=== PATIENT | female | born 1955 | race Caucasian/White ===

== ENCOUNTER 2020-06-13 06:30 | Outpatient (CLI) | payer MEDICARE, SELFPAY ==
--- NOTE | 2020-06-13 07:04 | MR_ITS ---
WS: [id number] MRI LEFT KNEE NONCONTRAST TECHNIQUE: Axial PD, coronal PD fat sat, coronal PD, sagittal PD, and sagittal PD fat-sat images obta ined. CLINICAL INFORMATION: KNEE PAIN, ACUTE COMPARISON: None. FINDINGS: Distal quadriceps and patella tendons are intact. Hypertrophic patella. Infrapatellar soft tissue fouzia ma. High-grade tear of the ACL with no normal fibers visualized. PCL appears intact with Mucoid degen eration. Chronic thinning of the medial and lateral meniscus. Chronic intrasubstance signal abnormality involv ing both the medial and lateral meniscus. No acute appearing meniscal tears. Moderate to advanced chris nt space narrowing involving the medial and lateral joint compartments and patellofemoral articulatio n. Advanced chondromalacia medial joint compartment with edema in the tibial plateau and femoral cond yle. Hypertrophic changes along the joint line. Advanced chondromalacia patella. Hypertrophic patella. Small popliteal cyst measuring 1.9 x 0.7 cm. M edial and lateral collateral ligaments are intact. MR/MR knee LT wo con* [id number] IMPRESSION: 1. High-grade tear of the ACL with no normal fibers visualized. 2. Increased T1 and T2 signal abnormality involving the PCL consistent with mu coid degeneration. 3. Chronic blunting of the medial and lateral meniscus. No acute appearing men iscal tears. 4. Advanced joint space narrowing involving the medial joint compartment with advanced chondromalacia and subchondral edema. 5. Advanced narrowing at the patellofemoral articulation with chondromalacia. 6. Small popliteal cyst as described above. 7. Medial and lateral collateral ligaments appear intact.
== END 2020-06-13 06:31 | disposition home or self-care (01) ==
LOC: RADSHAW 06:36
PROVIDERS: Family Provider Family Medicine; PCP Family Medicine; Visit Provider Family Medicine
DX: S83.511A Sprain of anterior cruciate ligament of right knee, initial encounter; X58.XXXA Exposure to other specified factors, initial encounter; M71.22 Synovial cyst of popliteal space [Baker], left knee; M22.42 Chondromalacia patellae, left knee; R60.0 Localized edema
CPT/HCPCS: 73721

== ENCOUNTER → 2020-06-27 15:57 | Outpatient (BNVA) | payer MEDICARE, SELFPAY | PROVIDERS: Family Provider Family Medicine; PCP Family Medicine; Referring Provider Family Medicine; Visit Provider Orthopaedic Surgery | DX: M25.562 Pain in left knee (principal) | CPT/HCPCS: 73560; 73565 ==

== ENCOUNTER 2020-12-08 13:36 | Outpatient (CLI) | payer MEDICARE, SELFPAY ==
--- NOTE | 2020-12-08 13:40 | MM_ITS ---
WS: [id number] BILATERAL SCREENING DIGITAL MAMMOGRAM WITH CAD HISTORY: SCREENING COMPARISON: 07/16/2013 Bilateral CC and MLO views submitted. Computer aided detection analyzed. Breast composition: The breasts are almost entirely fatty. No suspicious masses, microcalcifications or architectural distortion. Benign calcifications LEFT breast. MM/[place] [id number] IMPRESSION: BI-RADS: 2-Benign FOLLOW UP: 1 Year Follow-up
== END 2020-12-08 13:37 | disposition home or self-care (01) ==
LOC: RADSHAW 13:39
PROVIDERS: PCP Family Medicine; Visit Provider Family Medicine
DX: Z12.31 Encounter for screening mammogram for malignant neoplasm of breast (principal)
CPT/HCPCS: 77067

== ENCOUNTER → 2021-01-08 10:34 | Outpatient (BNVA) | payer MEDICARE, SELFPAY | PROVIDERS: PCP Family Medicine; Visit Provider Specialist | DX: M17.12 Unilateral primary osteoarthritis, left knee (principal); M25.561 Pain in right knee; M25.562 Pain in left knee; Z96.651 Presence of right artificial knee joint | CPT/HCPCS: 73560; 73565 ==

== ENCOUNTER → 2021-01-11 16:33 | Outpatient (BNVA) | payer MEDICARE, SELFPAY | PROVIDERS: PCP Family Medicine; Visit Provider Specialist | DX: Z01.812 Encounter for preprocedural laboratory examination (principal); Z20.822 Contact with and (suspected) exposure to COVID-19 | CPT/HCPCS: 87635 ==

== ENCOUNTER 2021-01-16 15:35 | Observation (INO) | payer MEDICARE, SELFPAY ==
[2021-01-09 13:08] VITALS: BMI 39.4
--- NOTE | 2021-01-09 14:03 | ANES.PREANE2 ---
Pre-Anesthetic Assessment Pre-Anesthetic Assessment: Height/Weight: Height 1.68 m Weight 110.677 kg Proposed Procedure: Operation Date: 01/16/21 14:25 Proposed Procedures p left Total Knee Arthroplasty 87845 m17.10(Left) - Cary Braga MD Was Beta Amilcar taken within 24 hours: N/A Was Clonidine taken within 24 hours: N/A Social: Social History: No alcohol and No tobacco Exam: Pre-Anes Outpt Exam: alert, oriented x 3, clear to auscultation bilaterally and regular rate & rhythm Airway: Submandibular: WNL Cervical ROM: WNL MP: 2 Dentition: Full CV/HEM: CV/HEM: HTN Metabolic: Metabolic: Morbid obesity and Thyroid Musc/skel: Musc/skel: OA/DJD Anesthetic Plan: ASA status: 3 Anesthesia: Regional (specify below) (SAB with adductor blk) Risk of > 500 ml blood loss (7ml/kg in children): No PFSH Anesthesia PFSH: Surgical History History of right knee joint replacement Social History Smoking and tobacco status: never smoked Data Anesthesia CBC & Chem 7: 01/09/21 13:25 01/09/21 13:25 Cardiac Studies: No Data to Display
[2021-01-09 14:06] LABS: Basophils % 0.7 %; Eosinophils # 0.4 10^3/uL (0.0-0.8); Eosinophils % 5.8 %; Hematocrit 38.5 % (37.0-47.0); Hemoglobin 12.6 g/dL (11.5-15.3); Lymphocytes # 2.1 10^3/uL (0.8-4.8); Lymphocytes % 34.2 %; Mean Corpuscular HGB Conc 32.7 g/dL (30.0-36.0); Mean Corpuscular Hemoglobin 30.3 pg (28.0-34.0); Mean Corpuscular Volume 92.5 fL (81-99); Mean Platelet Volume 11.4 fL (7.4-10.4); Monocytes # 0.6 10^3/uL (0.2-0.9); Monocytes % 9.1 %; Neutrophils # 3.03 10^3/uL (1.8-7.7); Nucleated Red Blood Cells % 0 %; Platelet Count 218 10^3/cmm (130-400); Red Blood Count 4.16 10^6/uL (4.1-5.3); Red Cell Distribution Width 12.3 % (12.1-15.1); White Blood Count 6.1 10^3/uL (4.0-10.0)
[2021-01-09 14:10] LABS: Alanine Aminotransferase 15 U/L (0-33); Albumin Level 4.3 g/dL (3.5-5.2); Alkaline Phosphatase 65 IU/L (35-105); Anion Gap 16.3 (5-19); Aspartate Amino Transferase 17 U/L (0-32); Blood Urea Nitrogen 29 mg/dL (8-23); Calcium 8.9 mg/dL (8.5-10.5); Carbon Dioxide 25 mmol/L (22-29); Chloride 101 mmol/L (98-107); Globulin 2.6 g/dL (1.3-4.6); Glomerular Filtration Rate 49.7 mL/min (90-130); Glucose 91 mg/dL (65-115); Osmolality Calculated 291 mOsm/kg (285-295); Potassium 4.3 mmol/L (3.5-5.1); Sodium 138 mmol/L (136-145); Total Bilirubin 0.4 mg/dL (0.15-1.2); Total Protein 6.9 g/dL (6.6-8.7)
[2021-01-09 14:14] LABS: Creatinine Clr Calc Pharmacy 63.4169
[2021-01-09 14:17] LABS: Add Urine Microscopic? YES; Bilirubin Urine 1+ (Negative); Blood Urine Trace (Negative); Glucose Urine UA Norm (Normal); Ketones Urine Negative (Negative); Leukocyte Esterase Urine Negative (Negative); Nitrate Urine Negative (Negative); Protein Urine Neg (Negative); Specific Gravity, Urine 1.015 (1.005-1.030); Urine Appearance Hazy (CLEAR); Urine Color Yellow (Yellow); Urobilinogen Urine 1 mg/dL (Negative); pH Urine 5 (5-7)
[2021-01-09 14:18] LABS: Add Urine Culture? No; Bacteria Urine 2+ /hpf; RBC Urine 0-4 /hpf (0-2); WBC Urine 0-4 /hpf (0-5)
[2021-01-16] VITALS (16 sets, daily range): BP systolic 107–168; BP diastolic 59–92; PULSE 64–85; RESP 12–20; TEMP 36.4–36.8; O2SAT 94–98
[2021-01-16] MEDS: CELEcoxib 200 mg Capsule 400 MG PO (10:27)
[2021-01-16] MEDS: sodium chloride 0.9% 1,000 ML 30 ML IV (10:27)
--- NOTE | 2021-01-16 10:35 | P.ANESUD_ITS ---
Pre-Anesthetic Update Pre-Anesthetic Assessment: Date of Surgery/Procedure: 01/16/21 Preop Minnie gnosis: Severe degenerative osteoarthritis left knee Proposed Procedure: Operation Date: 01/16/21 14:05 Proposed Procedures p left Total Knee Arthroplasty 19617 m17.10(Left) - Cary Braga MD Any changes to Pre-Anesthetic Assessment?: No Last Intake: Intake Last Liquid Date 01/15/21 Last Liquid Time 21:00 Last Solid Date 01/15/21 Last Solid Time 21:00 Vitals: Temperature 98 F 01/16/21 10:12 Temperature Source Temporal Artery S can 01/16/21 10:12 Pulse Rate 83 01/16/21 10:12 Respiratory Rate 18 01/16/21 10:12 Blood Pressure 168/92 01/16/21 10:12 Blood Pressure Hedy n 117 01/16/21 10:12 Pulse Oximetry 97 01/16/21 10:12 Oxygen Delivery Me thod 01/16/21 10:12 Exam: Pre-Anes Outpt Exam: alert, oriented x 3, clear to auscultation bilaterally and regular rate & rhythm Cardiac Studies: No Data to Display
[2021-01-16] MEDS: midazolam 1 mg/mL INJ 2 mL 2 MG IVP (10:37)
[2021-01-16] MEDS: vancomycin 1,000 MG in sodium chloride 0.9% 250 ML 250 MG IV (10:53)
--- NOTE | 2021-01-16 10:56 | ANES.PROC ---
Anesthesia Procedures Procedure/Date: 01/16/21 Nerve Block ^: Nerve Block 1: Main Anesthesia: general anesthesia Time Out Performed: Yes Consent: requested by attending/covering physician, from patient, risks and benefits reviewed and patient agrees to proceed Nerve block location: adductor canal (L) Anesthesia monitors applied: pulse oximetry, EKG, BP cuff and oxygen Nerve block position: supine Anesthetic Used: ropivicaine 0.5% and with decadron (4 mg) Amount of anesthesia used (mL): 30 Ultrasound used to: visualize and ID femerol nerve Nerve Stimulator Used?: No Interscalene/Femoral BLK: 4 stimuplex 21 g needle used for position and inplane approach, visualize local anesthetic spread and no vascular puncture identified Injection: neg aspiration of heme and paresthesia +/- Patient Tolerated Procedure: well and no complications Complications: none and bleeding Additional Comments: aspiration of arterial blood - needle withdrawn, blood ejected, 2nd attempt with successful spread and negative aspiration
--- NOTE | 2021-01-16 11:00 | P.HPUD_ITS ---
Surgery/Procedure H&P Update DATE OF PROCEDURE: January 16, 2021 DATE H&P PERFORMED: 01/08/21 H&P UPDATE INFORMATION: I have reviewed H&P completed within last 30 days, I have examined patient prior to procedure, No changes to prior documentation and H&P is in [facility] EMR on date indicated PREOP DIAGNOSIS: Severe degenerative osteoarthritis left knee PLANNED PROCEDURE: Operation Date: 01/16/21 14:05 Proposed Procedures p left Total Knee Arthroplasty 91124 m17.10(Left) - Cary Braga MD Related Problem List Diagnoses (1) Primary osteoarthritis of left knee: (2) Obesity, Class II, BMI 35-39.9:
[2021-01-16] MEDS: ceFAZolin 1,000 mg SDV 1000 MG IRRIGATION ×2 (12:44→12:45)
[2021-01-16] MEDS: vancomycin 1,000 MG SDV 1000 MG XX (12:46)
[2021-01-16] MEDS: tranexamic acid 1,000 mg/10mL SDV 1000 MG IRRIGATION (12:50)
--- NOTE | 2021-01-16 14:52 | P.OP_ITS ---
Operative Report Date of procedure: January 16, 2021 Pre-op Diagnosis: Severe degenerative osteoarthritis left knee Post-op diagnosis: same Post-op Findings: Severe degenerative osteoarthritis with large osteophytes Procedure Done: Left total knee arthroplasty Implants: The Erica total knee system with a size 4 triathlon beaded posterior stabilized femur left, a triathlon titanium tibial component size 4 beaded, a triathlon X3 posterior stabilized tibial bearing insert size 4 x 9 mm and a beaded triathlon titanium asymmetric patella size 32 x 10 mm Specimens removed/disposition: Bone, disposed of Pathology: none sent Surgeon: Cary Braga Dry Cleaning Attendant: [facility] operating room technicians Anesthesia: MAC (With spinal anesthesia and adductor block, ASA 3) Estimated blood loss (mL): 50 Tourniquet time (min): 120 Tourniquet time: At 250 mmHg IV fluids (mL): 800 Urine output (mL): 150 Complications: None Findings: Severe degenerative osteoarthritis with large osteophytes Condition: stable Disposition: PACU (Then discharged to floor for postoperative management and observation) Brief History: This 65-year-old woman presented with complaints of some right total knee arthroplasty elsewhere with subsequent revision by me. She is doing well with this, but the left knee is impacting her tremendously. She is unable to ambulate or comfortably live her life. After discussion, the patient wished to proceed with operative intervention in the form of a left total knee arthroplasty. Risks and complications were discussed with her. In particular, her BMI of 39.4 was discussed with her. She has decreased this from over 40, and she understands the issues regarding elevated BMI and arthroplasty. Procedure: The patient was brought to the operating theater, and after undergoing adequate spinal anesthesia with supplemental regional block and MAC anesthesia, ASA 3, the left lower extremity was prepped with Dura-Prep and draped in usual fashion following placement of a tourniquet high on the leg. The leg was then draped free. Following prepping and draping, the leg was exsanguinated, and the tourniquet was elevated to 250 mmHg for a total tourniquet time of 120 minutes. Prior to elevation of the tourniquet, but following exposure of the site of surgery, a surgical pause was performed. At the time of the surgical pause, we confirmed the site and side of surgery. Additionally, we confirmed the appropriate and timely administration of preoperative antibiotics, vancomycin 1 g, as well as transexemic acid 1 g. The availability of equipment was confirmed, and the patient's identity was verbalized as well. Following the surgical pause, an incision was made centering over the patella continuing proximally and distally as necessary to allow access to the knee noris int. Dissection continued through skin and soft tissues using a scalpel. Hemostasis was obtained using electrocautery. The skin incision was followed by a median parapatellar arthrotomy. The leg was extended and the patella was everted. Following this, the leg was returned to flexed position. The distal femur was exposed and a drill hole was made in this for placement of the distal femoral jig. The distal femoral jig was set at 5? of valgus. The distal femoral cutting block was then placed in appropriate position, and an crystal wing was used to confirm an appropriate amount of distal femur would be resected. The distal femoral resection was accomplished with 8 mm of bone being resected distally. After the distal femoral resection had been accomplished, the femur was measured and it measured a size 4. Medial lateral dimension also measured a size 4. A size 4 femoral cutting block was placed in position, and we were then able to accomplish the anterior, posterior and chamfer cuts. This jig was then removed and the notch guide was placed in position. With the notch guide in appropriate position, the notch was excised including resection of the anterior and posterior cruciate ligaments. This notch was to allow for the posterior stabilized femoral component. At this point, the femur was prepared and attention was directed to the proximal tibia. The posterior knee retractor was placed along with medial and lateral retractors. Further resection of the menisci was accomplished as we had better visualization. A complete meniscectomy was performed both medially and laterally with care being taken to protect the popliteus. Retractors were then placed so that the proximal tibia was well visualized. A drill hole was then made in the tibia for placement of the intramedullary guide. This guide was placed so that approximately 2 mm of bone would be resected from the deficient medial tibial plateau. The intramedullary guide was utilized supplemented with an extramedullary guide to assure appropriate alignment for the proximal tibial resection. The proximal tibial jig was then evaluated, pinned in position, and the proximal tibial resection was accomplished without difficulty. Circumferential osteophytes were removed from the tibia. The jig was removed, and the proximal tibia was measured. It measured a size 4. We then attempted a trial reduction with a size 4 by 9 mm insert. The femoral component was placed in position for the trial reduction, and the knee was placed through range of motion. There was excellent stability with excellent varus-valgus alignment with appropriate patellar tracking. Extension was noted to be full as well. This was felt to be the appropriate size insert. There was full extension and flexion without lift off and the rotation of the tibia was marked. Alignment was checked from the hip to the ankle, and this was noted to be appropriate as well. Attention was then directed to the patella. The patella was measured with a caliper. We resected sufficient patella to leave approximately 14 mm of patella remaining. Measurements of the patella then indicated that a size asymmetric 32 mm x 10 mm was the appropriate patellar size. We then placed the jig to drill for the 3 pegs of the press-fit patella, and these drill holes were made without incident. A trial patella was then placed, and the knee was placed through range of motion. The patella was noted to track nicely without evidence of subluxation. The femur was prepared for a press-fit femur by drilling 2 holes for the femoral pegs. All trial components were subsequently removed. The tibial tray was then pinned into position, and we broached the tibia for the stem of the tibial component. Subsequently, 4 drill holes were made for placement of the press-fit tibia. This was accomplished without difficulty. Care was taken to assure appropriate rotation of the tibia as well as appropriate position on the proximal tibia. The tibial tray was completely seated on the proximal tibia. Following broaching, the tibial guide was removed, and all surfaces were copiously irrigated. The surfaces were then dried and a bone plug was placed into the distal femur. Exparel was also injected at this point. The Tritanium tibia was impacted into position. The beaded femur was then impacted into position in a cementless fashion. The tibial insert was placed. The patella was pressed into position with a patellar clamp. The knee was irrigated with 20 mL of Betadine and 500 mL of normal saline, and this was allowed to remain in the knee for 3-4 minutes. The knee was then copiously irrigated and suctioned dry. Attention was then directed to closure. Closure was accomplished with 0 Vicryl in the fascial tissues, 2-0 Monocryl as well as 2 times 0 Vicryl were used in the subcutaneous tissues, and the skin was closed with skin benito and Dermabond with Prineo. A sterile dressing was then placed consisting of Opsite, 4 x 4's, ABDs, sterile soft roll, and an James wrap. The patient was returned the Recovery Room in a satisfactory condition. X-rays were obtained there. The patient will be discharged to the floor for postoperative rehabilitation and pain management. She'll be under observation status with plans to discharge home with home health. Associated Problem List Diagnoses (1) Primary osteoarthritis of left knee: (2) Obesity, Class II, BMI 35-39.9:
--- NOTE | 2021-01-16 14:59 | XR_ITS ---
WS: [id number] LEFT KNEE 2 VIEWS AP and cross table lateral imaging is submitted. HISTORY: Status post total knee arthroplasty. COMPARISON: 01/08/2021 Total knee replacement prosthetic devices are in good position and alignment. Normal position of the patella. Posterior patella prosthesis. Numerous postsurgical sutures are noted over the anterior knee and there are normal postoperative changes in the soft tissues consistent with air, blood and edema. No complications are evident. XR/XR knee LT 1-2V [id number] IMPRESSION: Satisfactory appearance of the recent LEFT knee arthroplasty.
--- NOTE | 2021-01-16 14:59 | SUR.PHASEI ---
1457 PATIENT TO PACU FROM OR. RR EVEN AND UNLABORED. PAYNE CATH IN PLACE. DRESSING TO LEFT KNEE, CDI WITH CHAVA WRAP IN PLACE.
--- NOTE | 2021-01-16 15:36 | SUR.PHASEI ---
1523 PATIENT TO MED SURG. DENIES PAIN. DRESSING TO LEFT KNEE, CDI WITH FIRST ICE IN PLACE. PAYNE CATH DRAINING CLEAR, YELLOW URINE.
--- NOTE | 2021-01-16 16:13 | PC.NURSE ---
called PACU and talked to GISEL Bhatti requesting orders to be transferred. play writer has PACU and OR meds
[2021-01-16] MEDS: calcium carbonate 500 mg Chew Tablet 1000 MG PO (17:12)
[2021-01-16] MEDS: sennosides-docusate Tablet 2 TAB PO (17:13)
[2021-01-16] MEDS: iron polysaccharide complex 150 mg Capsule PO (17:14)
[2021-01-16] MEDS: chlorhexidine gluconate 0.12% Btl 473 mL 30 ML MUCOUS MEM ×2 (17:14→21:56)
[2021-01-16] MEDS: mupirocin oint 22 gm 1 APPLIC NASAL (17:14)
--- NOTE | 2021-01-16 18:59 | ANE.PACU2 ---
Inpatient post-anesthesia follow up: Airway intact: Yes Vital signs: Temperature 97.7 F Pulse Rate 64 Respiratory Rate 17 Blood Pressure 115/75 Pulse Oximetry 98 Oxygen Delivery Me thod Room Air Oxygen Flow Rate Fraction of Inspir ed Oxygen Hydration adequate: Yes Nausea and vomiting: No Pain level: 2 Mental status: Baseline
[2021-01-16] MEDS: CELEcoxib 200 mg Capsule PO (21:56)
[2021-01-16] MEDS: cyclobenzaprine 10 mg Tablet PO (21:57)
[2021-01-16] MEDS: oxyCODONE 5 mg IR Tab/Cap PO (21:57)
[2021-01-17] VITALS (8 sets, daily range): BP systolic 97–110; BP diastolic 61–72; PULSE 71–92; RESP 16–18; TEMP 36.4–36.8; O2SAT 94–98
[2021-01-17 02:55] LABS: Basophils % 0.1 %; Hematocrit 34.7 % (37.0-47.0); Hemoglobin 11.6 g/dL (11.5-15.3); Lymphocytes # 1.2 10^3/uL (0.8-4.8); Lymphocytes % 11.4 %; Mean Corpuscular HGB Conc 33.4 g/dL (30.0-36.0); Mean Corpuscular Hemoglobin 30.4 pg (28.0-34.0); Mean Corpuscular Volume 91.1 fL (81-99); Monocytes # 0.8 10^3/uL (0.2-0.9); Monocytes % 7.3 %; Neutrophils # 8.74 10^3/uL (1.8-7.7); Neutrophils % 80.9 %; Nucleated Red Blood Cells % 0 %; Platelet Count 194 10^3/cmm (130-400); Red Blood Count 3.81 10^6/uL (4.1-5.3); Red Cell Distribution Width 11.7 % (12.1-15.1); White Blood Count 10.8 10^3/uL (4.0-10.0)
[2021-01-17 03:15] LABS: Anion Gap 14.4 (5-19); Blood Urea Nitrogen 25 mg/dL (8-23); Calcium 8.6 mg/dL (8.5-10.5); Carbon Dioxide 24 mmol/L (22-29); Chloride 102 mmol/L (98-107); Glomerular Filtration Rate 62.6 mL/min (90-130); Glucose 136 mg/dL (65-115); Osmolality Calculated 288 mOsm/kg (285-295); Potassium 4.4 mmol/L (3.5-5.1); Sodium 136 mmol/L (136-145)
[2021-01-17] MEDS: oxyCODONE 5 mg IR Tab/Cap PO (06:18)
[2021-01-17] MEDS: calcium carbonate 500 mg Chew Tablet 1000 MG PO (08:24)
[2021-01-17] MEDS: multivitamin therapeutic Tablet 1 TAB PO (08:25)
[2021-01-17] MEDS: levothyroxine 100 mcg Tablet PO (08:25)
[2021-01-17] MEDS: escitalopram 10 mg Tablet 20 MG PO (08:25)
[2021-01-17] MEDS: aspirin 325 mg EC Tablet PO (08:25)
[2021-01-17] MEDS: cyclobenzaprine 10 mg Tablet PO (08:25)
[2021-01-17] MEDS: CELEcoxib 200 mg Capsule PO (08:25)
[2021-01-17] MEDS: iron polysaccharide complex 150 mg Capsule PO (08:25)
[2021-01-17] MEDS: sennosides-docusate Tablet 2 TAB PO (08:25)
[2021-01-17] MEDS: lisinopril 20 mg Tablet PO (08:26)
[2021-01-17] MEDS: chlorhexidine gluconate 0.12% Btl 473 mL 30 ML MUCOUS MEM ×2 (08:26→12:07)
[2021-01-17] MEDS: cholecalciferol (vitamin D3) 1,000 unit Tablet 1000 UNIT PO (08:28)
--- NOTE | 2021-01-17 10:22 | PC.CHAP ---
Pastoral Care Encounter/Spiritual Assessment Type of Contact [] Declined burglar alarm operator visit [] Patient/Family/Request visit [] Outpatient visit [] Follow-up visit [] Physician referral [] Code/Alert [x] Routine visit [] Staff referral [] Actively dying [] Patient sleeping [] Family support [] [] Out of room [] Palliative care [] [] Receiving care in room [] Pre-surgical visit [] Trauma [] Long length of stay [] ICU visit [] Other: Relational/Emotional Strength [x] Patient feels connected with others/family/visitors/staff [] Distress [] Loneliness/isolation [] Abandonment Spirituality of Patient [x] Person of Lizabeth [] Attends Buddhism of their Lizabeth [x] Believes in Prayer [] Reads Bible or Nondenominational materials [] There are Spiritual issues to be addressed Senior Mechanical Project Manager Interventions [x] Prayer [x] Active listening x[] Non-anxious presence [] Spiritual/emotional support [] Crisis/trauma care [] Spiritual counseling [] Bereavement support [] Provided bereavement packet [] Provided Bible/devotional materials [] Provided toy/stuffed animal, coloring book to patient or family member [] Provided Communion [] Anointing/[place] [] Salvation [x] Completed spiritual assessment [] Other: Impact on Illness or Injury [] Angry [] Fearful [] Anxious [] Often cries [] Exhaustion [] Unable to work [] Unable to attend hoahaoism [] Unable to walk/stand [] Unable to read [] Unable to drive [] Unable to eat/drink [] Unable to sleep [] Unable to be with family [] Patient intubated [] Other: Summary patient doing good n very happy Time spent with patient 15 min
[2021-01-17] MEDS: vancomycin 1,000 MG in sodium chloride 0.9% 250 ML 250 MG IV (10:37)
--- NOTE | 2021-01-17 14:04 | PM.DCS ---
Discharge Providers Date of Admission: 01/16/21 15:35 Date of Discharge: January 17, 2021 Attending Provider at Admission: Cary Braga MD Attending Provider at Discharge: Cary Braga MD Primary Care Provider: Aaron Dooley MD Diagnoses at Discharge Discharge Diagnosis (1) Primary osteoarthritis of left knee: Status: Acute (2) Obesity, Class II, BMI 35-39.9: Status: Acute (3) Status post total left knee replacement not using cement: Status: Acute Permanent problem details: [employer] total knee system with a size 4 triathlon beaded posterior stabilized femur left, a triathlon titanium tibial component size 4 beaded, a triathlon X3 posterior stabilized tibial bearing insert size 4 x 9 mm and a beaded triathlon titanium asymmetric patella size 32 x 10 mm Reason for Visit Reason for Visit: total knee arthroplasty Hospital Course Hospital Course Patient presented to the hospital yesterday for same-day surgery. She underwent left total knee arthroplasty which was the primary. Prior to undergoing this left total knee arthroplasty, she was able to decrease her BMI to be under 40. She understood the risks and complications of the surgical procedure. The surgery was uneventful and the patient tolerated it well. She was seen on her first postoperative day. Her dressing was removed. Her wound was benign. There was no evidence of DVT or infection. There was no drainage. She was neurologically intact distally. She was comfortable and wished to be discharged home. Plans were made for her to be discharged home with home health. She was in agreement with the plan. Physical Exam Const: COMMON NORMALS: no acute distress, patient oriented x3 and alert GENERAL APPEARANCE: cooperative and comfortable ORIENTATION/CONSCIOUSNESS: Yes awake HENMT: COMMON NORMALS: normocephalic and atraumatic HEAD & SCALP: normocephalic and atraumatic Eye: GENERAL EYE: appearance normal, both eyes and all related structures Chest: COMMONS NORMALS: normal inspection of the chest Resp: COMMON NORMALS: normal respiratory effort EFFORT & INSPECTION: Yes able to speak in complete sentences and Yes symmetric chest movement Extremity: LEFT LOWER EXTREMITY: Yes knee joint (Dressing was removed, wound is benign.) Left knee: Yes inspection (No drainage or erythema.), Yes palpation (Minimal discomfort to palpation.), Yes ROM (Not evaluated.), Yes neurovascular exam (Intact distally.) and Yes other (Able to straight leg raise and hold the knee in an extended position.) Neuro: COMMON NORMALS: patient oriented x3 SENSORIUM/ORIENTATION: Yes alert Psych: COMMON NORMALS: mental status grossly normal APPEARANCE: Yes grossly normal ATTITUDE: Yes calm and Yes engaged ATTENTION/CONCENTRATION: Yes attention grossly intact Skin: COMMON NORMALS: no rashes or lesions noted GENERAL SKIN EXAM: no rashes or lesions noted Urinary Catheter Management^: Wilkins: Cath Placed During This Visit: yes, but has since been removed by the nurse Reason for Continuing Indwelling Catheter: Decision to DC Catheter Urinary Catheter Date of Insertion: 01/16/21 Urinary Catheter Time of Insertion: 12:00 Date Urinary Catheter Removed: 01/17/21 Time Urinary Catheter Discontinued: 06:12 Discharge Data Data Completed and Pending: Completed Studies During Hospitalization Category Date Time Status XR knee LT 1-2V 7 3560 Routine Exams 01/16/21 14:59 Completed Pending at discharge Category Date Time Status Complete Blood Co unt w/Auto AM LABS Lab 01/18/21 04:00 Ordered Complete Blood Co unt w/Auto AM LABS Lab 01/19/21 04:00 Ordered Labs from last 24 hours 01/17/21 01/17/21 02:34 02:34 WBC 10.8 H RBC 3.81 L Hgb 11.6 Hct 34.7 L MCV 91.1 MCH 30.4 MCHC 33.4 RDW 11.7 L Plt Count 194 MPV 11.0 H Neut % (Auto) 80.9 Lymph % (Auto) 11.4 Osborne % (Auto) 7.3 Eos % (Auto) 0.0 Baso % (Auto) 0.1 Neut # (Auto) 8.74 H Lymph # (Auto) 1.2 Osborne # (Auto) 0.8 Eos # (Auto) 0.0 Baso # (Auto) 0.0 Nucleated RBC % (a uto) 0 Nucleated RBCs # 0.0 Sodium 136 Potassium 4.4 Chloride 102 Carbon Dioxide 24 Anion Gap 14.4 BUN 25 H Creatinine 0.9 GFR Calculation 62.6 L Glucose 136 H Calculated Osmolal ity 288 Calcium 8.6 Vitals: Last Vital Signs Temp 98 F 01/17/21 11:19 Pulse 85 01/17/21 11:19 Resp 17 01/17/21 11:19 BP 110/70 01/17/21 11:19 Pulse Ox 95 01/17/21 11:19 Discharge Plan Discharge Patient Disposition: Home Health Service Condition: Stable Prescriptions: New celecoxib 200 mg Capsule 200 mg PO Q12H Qty: 60 RF: 0 aspirin 325 mg Tablet,Delayed Release (Dr/Ec) 325 mg PO DAILY 30 Days Qty: 0 RF: 0 oxycodone 5 mg Tablet 5 mg PO Q4H PRN (Reason: Moderate Pain) Qty: 30 RF: 0 Continued Myrbetriq 50 mg tablet extended release 24 hr 50 mg PO Q24H RF: 0 cyclobenzaprine 10 mg tablet 10 mg PO TID PRN (Reason: muscle relaxer) RF: 0 escitalopram oxalate [Lexapro] 20 mg tablet 20 mg PO DAILY RF: 0 lisinopril 20 mg tablet 20 mg PO DAILY RF: 0 aspirin 81 mg tablet,delayed release (DR/EC) 81 mg PO DAILY RF: 0 levothyroxine 100 mcg capsule 100 mcg PO DAILY RF: 0 Held celecoxib [Celebrex] 200 mg capsule 200 mg PO DAILY Qty: 44 RF: 0 Hold Instructions: Resume on 02/16/21. Resume daily after 2 x / days Discharge Orders: Discharge Order (Routine); Ordered 01/17/21 Ordered By: Cary Braga Referrals: [facility] [place] [facility] ([facility]) [Outside] Cary Braga MD [Physician] - 01/31/21 11:30 am Discharge Diet: Advance as tolerated and Usual diet Discharge Activity: Increase activity as tolerated, Limit activity as instructed, Use walker/crutches as instructed and As per PT/OT instructions Patient Instructions: Aspirin (By mouth), Oxycodone, Rapid Release (By mouth), Celecoxib (By mouth), Total Knee Replacement (DC), Opioid Safety Activity Restrictions/Additional Instructions: Elevate left lower extremity. Range of motion and strengthening per physical therapy. Gait training per physical therapy. Discharge Attestations Time Spent in Discharge Care*: greater than 30 min Quality Metrics Clinical Quality Measures During this hospital stay, did patient experience: None Coding Level of Care Code Acute Chg FW DC note Exam Comprehensive Diagnoses Primary osteoarthritis of left knee M17.12 Obesity, Class II, BMI 35-39.9 E66.9 Status post total left knee replacement not using cement Z96.652
--- NOTE | 2021-01-17 14:06 | PC.OT ---
OT EVALUATION ATTEMPTED; SCREEN COMPLETED. PATIENT WAS ABLE TO DEMONSTRATE ABILITY TO TRANSFER AND DRESS SELF WITH MODIFIED INDEPENDENCE. NO FURTHER SKILLED OT REQUIRED.
--- NOTE | 2021-01-17 16:02 | PC.NURSE ---
DISCHARGE DISCHARGE INSTRUCTIONS GIVEN PER THIS NURSE - NOTED DUPLICATE ASPIRIN SCRIPT - INSTRUCTED PT TO DISCONTINUE 81MG - PT VERBALIZES UNDERSTANDING
== END 2021-01-17 16:13 | disposition home health service (06) ==
LOC: MEDSURG 15:38
PROVIDERS: Admitting Provider Specialist; PCP Family Medicine; Visit Provider Specialist
PROC: (CPT 27447; principal; 2021-01-16 13:45)
DX: M17.12 Unilateral primary osteoarthritis, left knee (principal); E66.01 Morbid (severe) obesity due to excess calories; Z68.39 Body mass index [BMI] 39.0-39.9, adult; I10 Essential (primary) hypertension
CPT/HCPCS: 27447; 36415; 64447; 73560; 76942; 80048; 80053; 81001; 85025; 96365; 96374; 97110; 97116; 97161; 97530; C1776; C9290; G0378; J0690; J1100; J1170; J2250; J2704; J2795; J3010; J3370; J3490; J7030; J7050

== ENCOUNTER → 2021-01-31 11:32 | Outpatient (BNVA) | payer MEDICARE, SELFPAY | PROVIDERS: PCP Family Medicine; Visit Provider Specialist | DX: Z47.1 Aftercare following joint replacement surgery (principal); Z96.653 Presence of artificial knee joint, bilateral | CPT/HCPCS: 73560; 73565 ==

== ENCOUNTER → 2021-02-28 10:59 | Outpatient (BNVA) | payer MEDICARE, SELFPAY | PROVIDERS: PCP Family Medicine; Visit Provider Specialist | DX: Z96.652 Presence of left artificial knee joint (principal) | CPT/HCPCS: 73560; 73565 ==

== ENCOUNTER → 2021-05-02 08:43 | Outpatient (BNVA) | payer MEDICARE, SELFPAY | PROVIDERS: PCP Family Medicine; Visit Provider Specialist | DX: Z47.1 Aftercare following joint replacement surgery (principal); Z96.652 Presence of left artificial knee joint | CPT/HCPCS: 73560; 73565 ==

== ENCOUNTER → 2021-08-06 08:15 | Outpatient (BNVA) | payer MEDICARE, SELFPAY | PROVIDERS: PCP Family Medicine; Visit Provider Specialist | DX: Z96.652 Presence of left artificial knee joint (principal) | CPT/HCPCS: 73560; 73565 ==

== ENCOUNTER → 2021-12-10 10:00 | Outpatient (BNVA) | payer MEDICARE, SELFPAY | PROVIDERS: PCP Family Medicine; Visit Provider Specialist | DX: Z48.89 Encounter for other specified surgical aftercare (principal); E66.01 Morbid (severe) obesity due to excess calories; Z68.41 Body mass index [BMI] 40.0-44.9, adult; Z96.652 Presence of left artificial knee joint; M19.90 Unspecified osteoarthritis, unspecified site; I10 Essential (primary) hypertension; E03.9 Hypothyroidism, unspecified | CPT/HCPCS: 73560; 73565; 80048; 84443; 85025; 85651; 86140; 99213 ==

== ENCOUNTER 2022-02-25 10:36 | Outpatient (CLI) | payer MEDICARE, SELFPAY ==
--- NOTE | 2022-02-25 10:43 | MM_ITS ---
WS: [id number] BILATERAL SCREENING DIGITAL TOMOSYNTHESIS MAMMOGRAM WITH CAD HISTORY: SCREENING COMPARISON: 12/08/2020 and 07/16/2013 Bilateral CC and MLO views with tomosynthesis and synthetic mammography submitted. Computer aided det ection analyzed. Breast composition: There are scattered areas of fibroglandular density. No suspicious masses, microc alcifications or architectural distortion. Benign calcifications. MM/[place] [id number] IMPRESSION: BI-RADS: 2-Benign FOLLOW UP: 1 Year Follow-up
== END 2022-02-25 10:37 | disposition home or self-care (01) ==
LOC: RAD 10:38
PROVIDERS: PCP Family Medicine; Visit Provider Family Medicine
DX: Z12.31 Encounter for screening mammogram for malignant neoplasm of breast (principal)
CPT/HCPCS: 77063; 77067

== ENCOUNTER → 2022-11-04 15:15 | Outpatient (BNVA) | payer MEDICARE, SELFPAY | PROVIDERS: PCP Family Medicine; Visit Provider Family Medicine | DX: I10 Essential (primary) hypertension (principal); E03.9 Hypothyroidism, unspecified; E66.01 Morbid (severe) obesity due to excess calories; Z68.41 Body mass index [BMI] 40.0-44.9, adult; F32.A Depression, unspecified | CPT/HCPCS: 80053; 80061; 84443; 85025 ==

== ENCOUNTER 2023-01-09 12:51 | Outpatient (CLI) | payer MEDICARE, SELFPAY ==
--- NOTE | 2023-01-09 13:02 | XR_ITS ---
WS: [id number] Left wrist, 2 views, 01/09/2023 Clinical Data: pain/ swelling Comparison: None. Findings: No fractures or dislocations are seen. There is sclerosis of the articulation between the distal radi us and the scaphoid with narrowing of the joint space. There is widening of the joint space between t he lunate and the scaphoid. The remainder of the carpal bones is normal.. There is no soft tissue swe lling. The distal ulna is not remarkable. XR/XR wrist LT 2V [id number] Impression: Osteoarthritis with sclerosis and narrowing of the articulation between the dis franklyn left radius and the scaphoid.
== END 2023-01-09 12:52 | disposition home or self-care (01) ==
PROVIDERS: PCP Family Medicine; Visit Provider Family Medicine
DX: M19.032 Primary osteoarthritis, left wrist (principal)
CPT/HCPCS: 73100

== ENCOUNTER 2023-04-25 09:07 | Outpatient (CLI) | payer MEDICARE, SELFPAY ==
--- NOTE | 2023-04-25 09:27 | MM_ITS ---
WS: [id number] VIEWS: MLO and CC views both breasts. 3D digital tomosynthesis is also included in this exam. Comparison made with prior exam of 04/16/2007, 05/12/2008, 06/01/2009, 03/20/2011, 04/20/2012, 4, 12/08/2020, 02/25/2022.. Findings: 8 mm nodule with mild architectural distortion seen in the central LEFT breast on the cc view only. T his has been stable in appearance when compared to serial prior mammograms as far back as 06/01/2009. The remaining aspects of both breasts show no suspicious mass, tumor calcification or architectural d istortion. There are scattered areas of fibroglandular density. Impression: MM/[place] [id number] BI-RADS: 2-Benign finding. FOLLOW-UP: 1 Year Follow-up This mammogram was also analyzed by the Computer Aided Detection System R2 Imag e Management Aide.
== END 2023-04-25 09:08 | disposition home or self-care (01) ==
LOC: RAD 09:07
PROVIDERS: PCP Family Medicine; Visit Provider Family Medicine
DX: Z12.31 Encounter for screening mammogram for malignant neoplasm of breast (principal)
CPT/HCPCS: 77063; 77067

== ENCOUNTER → 2023-05-08 09:27 | Outpatient (BNVA) | payer MEDICARE, SELFPAY | PROVIDERS: PCP Family Medicine; Visit Provider Family Medicine | DX: E21.3 Hyperparathyroidism, unspecified (principal); I10 Essential (primary) hypertension; E03.9 Hypothyroidism, unspecified; F32.A Depression, unspecified; E66.01 Morbid (severe) obesity due to excess calories; Z68.41 Body mass index [BMI] 40.0-44.9, adult | CPT/HCPCS: 80053; 80061; 82542; 84443 ==

== ENCOUNTER 2023-09-23 11:58 | Outpatient (CLI) | payer MEDICARE, SELFPAY ==
--- NOTE | 2023-09-23 12:04 | XR_ITS ---
WS: [email or web address] Exam: XR chest 2V* [id number] Date/Time of Exam: 09/23/2023 12:07 PM Reason For Exam: cough Comparison 09/02/2018. Findings: The lungs are clear and fully expanded. Costophrenic angles are sharp. No infiltrates. Bronchovascula r relief appears normal. Cardiac silhouette is unremarkable. Bony elements are intact. Chronically el evated RIGHT diaphragm. IMPRESSION: Unremarkable chest radiograph.
== END 2023-09-23 11:59 | disposition home or self-care (01) ==
LOC: RAD 12:01
PROVIDERS: PCP Family Medicine; Visit Provider Family Medicine
DX: J18.9 Pneumonia, unspecified organism (principal)
CPT/HCPCS: 71046

== ENCOUNTER 2023-10-10 10:14 | Outpatient (CLI) | payer MEDICARE, SELFPAY ==
--- NOTE | 2023-10-10 10:45 | CT_ITS ---
WS: [id number] CT chest w con* [id number] HISTORY: persistent cough TECHNIQUE: Axial imaging performed through the thorax. Coronal and sagittal reformats are submitted. All CT scans at [facility] use at least one of these dose optimization techniques: automated exposure control; mA and/or kV adjustment per patient size (includes targeted exams where dose is mat ched to clinical indication); or iterative reconstruction. CONTRAST: Omnipaque 350; 100 mL IV. DLP: 698.83 mGy.cm COMPARISON: Chest radiograph 09/23/2023 Lungs and central airway: No pulmonary mass or pneumonia. The lungs are well-aerated. No pneumothorax . Pleura: Normal. No pleural effusion. Heart and pericardium: Mildly enlarged heart. No RIGHT heart strain. No pericardial effusion. Mediastinum and len: No mediastinum or hilar adenopathy. Vessels: Mild atherosclerosis aorta. Normal sized pulmonary artery. Chest wall and lower neck: No soft tissue masses. Upper abdomen: Moderate size hiatal hernia. Marked decreased attenuation throughout the liver from he patic steatosis. Prior cholecystectomy. No bile duct dilatation. No adrenal mass. Osseous structures: Increase in thoracic kyphosis. IMPRESSION: 1. No pulmonary mass or nodule. No pneumonia. 2. Mild cardiomegaly. 3. No mediastinal or hilar adenopathy. 4. Moderate hiatal hernia. 5. Prior cholecystectomy. 6. Hepatic steatosis.
[2023-10-10 11:16] LABS: Blood Urea Nitrogen 18 mg/dL (8-23)
[2023-10-10] MEDS: iohexol 350 mg/mL 500 mL Btl (per mL) IV (11:21)
== END 2023-10-10 10:15 | disposition home or self-care (01) ==
LOC: RAD 10:14
PROVIDERS: PCP Family Medicine; Visit Provider Family Medicine
DX: J18.9 Pneumonia, unspecified organism (principal); R05.8 Other specified cough; I51.7 Cardiomegaly; K44.9 Diaphragmatic hernia without obstruction or gangrene; K76.0 Fatty (change of) liver, not elsewhere classified
CPT/HCPCS: 71260; 82565; 84520; Q9967

== ENCOUNTER → 2023-11-06 08:10 | Outpatient (BNVA) | payer MEDICARE, SELFPAY | PROVIDERS: PCP Family Medicine; Visit Provider Family Medicine | DX: I10 Essential (primary) hypertension (principal); F32.A Depression, unspecified; E03.9 Hypothyroidism, unspecified; E21.3 Hyperparathyroidism, unspecified; R51.9 Headache, unspecified; E66.01 Morbid (severe) obesity due to excess calories; Z68.41 Body mass index [BMI] 40.0-44.9, adult; E11.9 Type 2 diabetes mellitus without complications | CPT/HCPCS: 80053; 80061; 82542; 84443; 85025 ==

== ENCOUNTER 2024-04-26 14:45 | Emergency (ER) | payer MEDICARE, SELFPAY ==
--- NOTE | 2024-04-26 14:47 | ECG_ITS ---
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 Measurements Intervals [place] Rate: 65 P: 10 TX: 178 QRS: 12 QRSD: 86 T: 20 QT: 392 QTc: 409 Interpretive Statements SINUS RHYTHM Compared to ECG 09/02/2018 11:34:09 Sinus bradycardia no longer present Myocardial infarct finding no longer present Electronically Signed On 04-26-2024 23:54:40 CDT by Sumanth Persaud M.D. [email or web address]
--- NOTE | 2024-04-26 14:47 | XRR_ITS ---
PROCEDURE INFORMATION: Exam: XR Chest Exam date and time: 04/26/2024 3:07 PM Age: 68 years old Clinical indication: Shortness of breath; Additional info: Fall TECHNIQUE: Imaging protocol: Radiologic exam of the chest. Views: 1 view. COMPARISON: CT chest w con* [id number] 10/10/2023 11:17 AM FINDINGS: Lungs: Unremarkable. No consolidation. Pleural spaces: Unremarkable. No pleural effusion. No pneumothorax. Heart/Mediastinum: Unremarkable. No cardiomegaly. Bones/joints: No acute osseous lesions identified XR/XR chest 1V portable [id number] IMPRESSION: No acute findings.
[2024-04-26 15:00] VITALS: BP 132/82; PULSE 64; RESP 18; TEMP 36.6; O2SAT 95; BMI 44.2
--- NOTE | 2024-04-26 18:16 | ED_ITS ---
HPI - Fall General: Chief Complaint: Fall Stated Complaint: fall, chest hurts, sob Time Seen by Provider: 04/26/24 18:02 Source: patient Mode of arrival: ambulatory Limitations: no limitations History of Present Illness: 68-year-old female who states that she h ad fell this afternoon at 2 PM. She states she had landed on concrete and struck her chest she states she been having a sharp pain in the center of her chest since then was worse with inspiration and palpation rates the pain a 6 out of 10 currently denies any her head denies any other injuries. Associated symptoms-after fall: Reports chest pain; Denies abdominal pain, headache(s) or neck pain Related Data Previous Rx's Medication Instructions Recorded levothyroxine 100 mcg tablet See Rx Instructions .Route 05/08/23 .COMPLEX #90 tabs benzonatate 100 mg capsule 100 mg PO TID PRN cough #45 caps 09/09/23 albuterol sulfate 90 mcg/actuation 2 puff inhalation Q6H PRN 09/23/23 aerosol inhaler (Ventolin HFA) shortness of breath or wheezing #8.5 grams amlodipine 5 mg tablet See Rx Instructions .Route 10/15/23 .COMPLEX #60 tabs celecoxib 100 mg capsule See Rx Instructions .Route 10/15/23 .COMPLEX #60 caps escitalopram oxalate 10 mg tablet 10 mg PO DAILY #30 tabs 02/10/24 (Lexapro) carvedilol 12.5 mg tablet See Rx Instructions .Route 03/18/24 .COMPLEX #60 tabs amoxicillin 500 mg-potassium 1 tab PO TID #30 tabs 04/20/24 clavulanate 125 mg tablet (Augmentin) naproxen 500 mg tablet (Naprosyn) 500 mg PO BID PRN pain #20 tabs 04/26/24 Allergies Allergy/AdvReac Type Severity Reaction Status Date / Time lisinopril Allergy Severe lips Verified 04/26/24 15:05 swelling oxycodone [From Percocet] Allergy Severe ALGY-Swell Verified 04/26/24 15:05 Lip/Tongue/Throat acetaminophen [From Percocet] Allergy Unknown Verified 04/26/24 15:05 atorvastatin [From Lipitor] Allergy Unknown Verified 04/26/24 15:05 diclofenac [From Voltaren] Allergy Unknown Verified 04/26/24 15:05 ezetimibe [From Zetia] Allergy Unknown Verified 04/26/24 15:05 hydrocodone Allergy Unknown Verified 04/26/24 15:05 pravastatin [From Pravachol] Allergy Unknown Verified 04/26/24 15:05 simvastatin [From Zocor] Allergy Unknown Verified 04/26/24 15:05 sulfamethoxazole Allergy ADR-Itching Verified 04/26/24 15:05 [From Bactrim] tioconazole [From 1-Day] Allergy ADR-Abdominal Verified 04/26/24 15:05 Pain tramadol Allergy Unknown Verified 04/26/24 15:05 trimethoprim [From Bactrim] Allergy ADR-Itching Verified 04/26/24 15:05 escitalopram [From Lexapro] AdvReac Intermediate ADR-Headach Verified 04/26/24 15:05 e metoprolol AdvReac Intermediate ADR-Halluci Verified 04/26/24 15:05 nating Review of Systems Const: Denies: fever(s), chills, body aches or change in appetite ENMT: Denies: throat pain or dental pain Card: Reports: chest pain Resp: Denies: dyspnea GI: Denies: abdominal pain, nausea, vomiting or diarrhea Musc: Denies: neck pain or back pain Skin/Breast: Denies: rash Neuro: Denies: headache(s) PFSH ED PFSH: Medical History Fibrositis Migraines Hyperparathyroidism Hyperlipidemia Hypertension Hypothyroidism Depression Surgical History History of appendectomy History of cholecystectomy History of right knee joint replacement Social History Smoking and tobacco/nicotine status: unknown if used tobacco/nicotine Physical Exam Const: COMMON NORMALS: no acute distress, patient oriented x3 and healthy appearing HENMT: COMMON NORMALS: normocephalic and atraumatic HEAD & SCALP: normocephalic and atraumatic Neck/C-Spine: COMMON NORMALS: full ROM and supple Chest: COMMONS NORMALS: normal inspection of the chest OTHER: Point tender in the center of the chest Resp: COMMON NORMALS: normal respiratory effort, No retractions, No use of accessory muscles and clear to auscultation bilaterally AUSCULTATION: clear to auscultation bilaterally Cardio: COMMON NORMALS: regular rate, regular rhythm and No murmurs present (Cardio) RATE: regular rate RHYTHM: regular rhythm Extremity: COMMON NORMALS: normal to inspection and full ROM Neuro: COMMON NORMALS: patient oriented x3, moves all extremities and no focal motor deficits Psych: COMMON NORMALS: mental status grossly normal, Normal thought process present and cooperative THOUGHT PROCESS: Normal thought process present Skin: COMMON NORMALS: no rashes or lesions noted and no wounds GENERAL SKIN EXAM: no rashes or lesions noted Course Vital Signs: Vital signs: Vital Signs Temperature 97.9 F 04/26/24 15:00 Pulse Rate 64 04/26/24 15:00 Respiratory Rate 18 04/26/24 15:00 Blood Pressure 132/82 04/26/24 15:00 Pulse Oximetry 95 04/26/24 15:00 Oxygen Delivery Me thod Room Air 04/26/24 15:00 MDM - Fall Medical Decision Making Patient presents here with chest wall pain from a fall imaging here is normal she has no signs of fractures she is stable for discharge she is follow-up with PCP she is return to ER if worsening she understands agrees to plan. Medical Records I reviewed the patient's medical records. Lab Data Radiology Impressions Chest X-Ray 04/26/24 14:47 IMPRESSION: No acute findings. All radiology interpretation(s) finalized by discharge EKG Data EKG 1: I personally reviewed and interpreted this EKG as follows: EKG interpretation date: 04/26/24 EKG interpretation time: 14:51 Interpretation: nsr hr [address] elevation qrs 86 qtc 404 Discharge Plan Discharge Patient Disposition: Home Clinical Impression: Fall, Chest wall contusion Condition: Stable Prescriptions: New naproxen [Naprosyn] 500 mg tablet 500 mg PO BID PRN (Reason: pain) Qty: 20 0RF No Action levothyroxine 100 mcg tablet See Rx Instructions .ROUTE .COMPLEX Qty: 90 3RF Dose Instruction: TAKE 1 TABLET BY MOUTH EVERY DAY Rx Instructions: TAKE 1 TABLET BY MOUTH EVERY DAY amoxicillin-pot clavulanate [Augmentin] 500-125 mg tablet 1 tab PO TID Qty: 30 0RF benzonatate 100 mg capsule 100 mg PO TID PRN (Reason: cough) Qty: 45 0RF albuterol sulfate [Ventolin HFA] 90 mcg/actuation HFA aerosol inhaler 2 puff inhalation Q6H PRN (Reason: shortness of breath or wheezing) Qty: 8.5 11RF escitalopram oxalate [Lexapro] 10 mg tablet 10 mg PO DAILY Qty: 30 11RF amlodipine 5 mg tablet See Rx Instructions .ROUTE .COMPLEX Qty: 60 11RF Dose Instruction: TAKE 1 TABLET BY MOUTH TWICE DAILY Rx Instructions: TAKE 1 TABLET BY MOUTH TWICE DAILY celecoxib 100 mg capsule See Rx Instructions .ROUTE .COMPLEX Qty: 60 11RF Dose Instruction: take 1 capsule BY MOUTH TWICE DAILY Rx Instructions: take 1 capsule BY MOUTH TWICE DAILY carvedilol 12.5 mg tablet See Rx Instructions .ROUTE .COMPLEX Qty: 60 11RF Dose Instruction: TAKE 1 TABLET BY MOUTH TWICE DAILY WITH MEAL OR FOOD Rx Instructions: TAKE 1 TABLET BY MOUTH TWICE DAILY WITH MEAL OR FOOD Discharge Orders: Discharge ED (Routine); Ordered 04/26/24 Ordered By: Murtaza Valverde Referrals: Aaron Dooley MD [Primary Care Provider] - Discharge Diet: Advance as tolerated Discharge Activity: Resume usual activity Patient Instructions: Chest Wall Pain (ED), Chest Contusion (ED) Coding Level of Care Code ED Telephone Order Clerk for Anuj Remy
[2024-04-26] MEDS: naproxen 500 mg Tablet PO (18:27)
[2024-04-26 18:29] VITALS: BP 180/92; PULSE 56; O2SAT 99
[2024-04-26 18:38] VITALS: BP 180/92; PULSE 56; O2SAT 99
== END 2024-04-26 18:39 | disposition home or self-care (01) ==
PROVIDERS: Emergency Provider Emergency Medicine; PCP Family Medicine
DX: S20.219A Contusion of unspecified front wall of thorax, initial encounter (principal); W19.XXXA Unspecified fall, initial encounter
CPT/HCPCS: 71045; 93005; 99284

== ENCOUNTER → 2024-06-10 15:29 | Outpatient (BNVA) | payer MEDICARE, SELFPAY | PROVIDERS: PCP Family Medicine; Visit Provider Family Medicine | DX: J02.9 Acute pharyngitis, unspecified (principal); R05.9 Cough, unspecified | CPT/HCPCS: 87635 ==

== ENCOUNTER → 2024-08-12 09:32 | Outpatient (BNVA) | payer MEDICARE, SELFPAY | PROVIDERS: PCP Family Medicine; Visit Provider Family Medicine | DX: F32.A Depression, unspecified (principal); I10 Essential (primary) hypertension; E03.9 Hypothyroidism, unspecified; E21.3 Hyperparathyroidism, unspecified; R73.9 Hyperglycemia, unspecified | CPT/HCPCS: 80053; 80061; 82310; 83036; 83970; 84443; 85025 ==

== ENCOUNTER 2024-10-26 09:10 | Outpatient (CLI) | payer MEDICARE, SELFPAY ==
--- NOTE | 2024-10-26 09:23 | XRR_ITS ---
PROCEDURE INFORMATION: Exam: XR Right Knee Exam date and time: 10/26/2024 9:49 AM Age: 69 years old Clinical indication: Injury or trauma; Blunt trauma; Injury date: 4 weeks ago; Injury details: Fall 4 wks ago, right hip and knee pain and difficulty bearing weight since, HX of 4 right knee replacements; Prior surgery; Surgery date: 6+ months; Surgery type: Right knee replacement x 4; Additional info: Fall/ RT hip/ knee pain TECHNIQUE: Imaging protocol: Radiologic exam of the right knee. Views: 3 views. COMPARISON: CR XR knees AP WB w BI lmt ORTH 01/08/2021 10:40 AM FINDINGS: Bones/joints: Total knee arthroplasty is in expected position. No acute fracture. Soft tissues: Normal. XR/XR knee RT 3V* [id number] IMPRESSION: Postoperative changes from total knee arthroplasty without evidence of acute osseous abnormality.
--- NOTE | 2024-10-26 09:23 | XRR_ITS ---
PROCEDURE INFORMATION: Exam: XR Right Hip Exam date and time: 10/26/2024 9:49 AM Age: 69 years old Clinical indication: Injury or trauma; Blunt trauma (contusions or hematomas); Injury date: 4 weeks ago; Injury details: Fall 4 wks ago, right hip and knee pain and difficulty bearing weight since, HX of 4 right knee replacements; Additional info: Hip pain/ fall TECHNIQUE: Imaging protocol: Radiologic exam of the right hip. Views: 1 view hip with pelvis when performed. COMPARISON: No relevant prior studies available. FINDINGS: Bones/joints: Normal alignment. Mild joint space narrowing. No acute fracture. Soft tissues: Unremarkable. XR/XR hip RT 2-3V wo/w pel* [id number] IMPRESSION: Mild degenerative change without acute osseous abnormality.
== END 2024-10-26 09:11 | disposition home or self-care (01) ==
PROVIDERS: PCP Family Medicine; Visit Provider Family Medicine
DX: M25.551 Pain in right hip (principal); Z98.890 Other specified postprocedural states; Z96.89 Presence of other specified functional implants
CPT/HCPCS: 73502; 73562

== ENCOUNTER 2025-01-18 10:31 | Outpatient (CLI) | payer MEDICARE, SELFPAY ==
[2025-01-18 12:28] LABS: C.Diff PCR (Lab) NEGATIVE (Negative)
== END 2025-01-18 10:32 | disposition home or self-care (01) ==
PROVIDERS: PCP Family Medicine; Visit Provider Family Medicine
DX: Z01.89 Encounter for other specified special examinations (principal); R19.7 Diarrhea, unspecified
CPT/HCPCS: 87045; 87177; 87209; 87427; 87449; 87493